=== PATIENT | female | born 1940 | race Caucasian/White ===

== ENCOUNTER 2018-12-31 13:11 | Emergency (ER) | payer OTHER ==
[~2018-12-31] VITALS: Ht 160 cm; Wt 85.3 kg
[2018-12-31 13:20] VITALS: Ht 160 cm; Wt 85.3 kg
[2018-12-31 14:28] VITALS: BP 130/65
== END 2018-12-31 14:28 | disposition home or self-care (01) ==
LOC: ED 13:11
DX: T88.1XXA Other complications following immunization, not elsewhere classified, initial encounter (principal); R11.2 Nausea with vomiting, unspecified; B34.9 Viral infection, unspecified; I10 Essential (primary) hypertension; E11.9 Type 2 diabetes mellitus without complications; Z88.0 Allergy status to penicillin

== ENCOUNTER 2019-01-26 14:21 | Emergency (ER) | payer OTHER ==
[~2019-01-26] VITALS: Ht 160 cm; Wt 86.6 kg
[2019-01-26 14:38] VITALS: Ht 160 cm; Wt 86.6 kg
[2019-01-26 16:57] VITALS: BP 116/65
== END 2019-01-26 16:57 | disposition home or self-care (01) ==
LOC: ED 14:21
DX: S52.001A Unspecified fracture of upper end of right ulna, initial encounter for closed fracture (principal); M25.511 Pain in right shoulder; M25.531 Pain in right wrist; I10 Essential (primary) hypertension; E11.9 Type 2 diabetes mellitus without complications; Z88.0 Allergy status to penicillin; X58.XXXA Exposure to other specified factors, initial encounter; Y93.89 Activity, other specified; Y92.89 Other specified places as the place of occurrence of the external cause; Y99.8 Other external cause status

== ENCOUNTER 2019-01-31 18:50 | Emergency (ER) | payer OTHER ==
[~2019-01-31] VITALS: Ht 160 cm; Wt 86.2 kg
[2019-01-31 19:05] VITALS: Ht 160 cm; Wt 86.2 kg
[2019-01-31 21:44] VITALS: BP 142/70
== END 2019-01-31 21:44 | disposition home or self-care (01) ==
LOC: ED 18:50
DX: M54.2 Cervicalgia (principal); I10 Essential (primary) hypertension; E11.9 Type 2 diabetes mellitus without complications; Z98.890 Other specified postprocedural states; Z88.0 Allergy status to penicillin
CPT/HCPCS: J1885; J3010; Q0162

== ENCOUNTER 2019-02-02 05:46 | Emergency (ER) | payer OTHER ==
[~2019-02-02] VITALS: Ht 160 cm; Wt 86.3 kg
[2019-02-02 06:04] VITALS: Ht 160 cm; Wt 86.3 kg
[2019-02-02 10:00] VITALS: BP 149/78
== END 2019-02-02 10:00 | disposition home or self-care (01) ==
LOC: ED 05:46
DX: S13.9XXA Sprain of joints and ligaments of unspecified parts of neck, initial encounter (principal); I10 Essential (primary) hypertension; E11.9 Type 2 diabetes mellitus without complications; Z88.0 Allergy status to penicillin; W18.30XA Fall on same level, unspecified, initial encounter; Y93.89 Activity, other specified; Y92.89 Other specified places as the place of occurrence of the external cause; Y99.8 Other external cause status
CPT/HCPCS: J1885; J2270; Q0162